=== PATIENT | female | born 1990 ===

== ENCOUNTER → 2017-03-05 | Outpatient (REF) | payer MEDICARE | LOC: M LAB REF 16:57 | PROVIDERS: ATTEND Advanced Practice Midwife | DX: O30.091 Twin pregnancy, unable to determine number of placenta and number of amniotic sacs, first trimester (principal) ==

== ENCOUNTER → 2017-03-21 | Outpatient (REF) | payer MEDICARE ==
[2017-03-21 20:24] LABS: FREE T4 0.8 NG/DL (0.76-1.46)
== END ==
LOC: M LABDRAW1 15:06
PROVIDERS: ATTEND Nurse Practitioner Family
DX: E06.3 Autoimmune thyroiditis (principal)

== ENCOUNTER → 2017-04-18 | Outpatient (REF) | payer MEDICARE ==
[2017-04-18 18:28] LABS: FREE T4 0.93 NG/DL (0.76-1.46)
== END ==
LOC: M LABDRAW1 15:27
DX: E06.3 Autoimmune thyroiditis (principal)
CPT/HCPCS: 84443